=== PATIENT | female | born 2000 | race African-American/Black ===

== ENCOUNTER 2020-08-02 14:45 | Emergency (ER) | payer SELFPAY ==
[~2020-08-02] VITALS: Ht 165.1 cm; Wt 65.8 kg
[2020-08-02] MEDS ORDERED: OLANZAPINE 10 MG VIAL IM ONE ×2 (15:06→15:30)
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
--- NOTE | 2020-08-02 15:26 | NUR ---
covid swab done and taken it to the lab.
[2020-08-02] MEDS ORDERED: diphenhydrAMINE HCL 50 MG/ML VIAL IM ONE (16:00)
[2020-08-02] MEDS ORDERED: IV NS 0.9% 1,000 ML IV ONE ×3 (16:00→17:30)
[2020-08-02] MEDS ORDERED: LORAZEPAM INJ 2 MG/ML VIAL IM ONE (16:00)
[2020-08-02] MEDS ORDERED: diphenhydrAMINE HCL 50 MG/ML VIAL ONE (16:01)
[2020-08-02] MEDS ORDERED: LORAZEPAM INJ 2 MG/ML VIAL ONE (16:01)
[2020-08-02 16:06] LABS: BASOPHILS # (AUTO) 0.1 /CMM (0.0-0.2); BASOPHILS % (AUTO) 0.6 % (0.0-2.0); EOSINOPHILS % (AUTO) 0.4 % (0.0-6.0); HEMATOCRIT 40 % (33-45); HEMOGLOBIN 13.5 g/dL (11.5-14.8); LYMPHOCYTES # (AUTO) 1.6 /CMM (0.8-4.8); MEAN CORPUSCULAR HGB CONC 34 g/dl (31.0-36.0); MEAN CORPUSCULAR VOLUME 92 fL (82-100); MONOCYTES # (AUTO) 1.2 /CMM (0.1-1.30); MONOCYTES % (AUTO) 8.2 % (2.0-12.0); NEUTROPHILS # (AUTO) 11.8 /CMM (1.8-8.9); NEUTROPHILS % (AUTO) 79.8 % (43.0-81.0); PLATELET COUNT (AUTO) 258 /CMM (150-450); RED BLOOD CELL COUNT(AUTO) 4.41 MIL/uL (4.0-5.2); WHITE BLOOD COUNT (AUTO) 14.9 K/uL (4.3-11.0)
--- NOTE | 2020-08-02 16:07 | NUR ---
PT BECAME ANXIOUS, YELLING. MEDICATED PER ERMD ORDER, PT RUSTY WELL.
[2020-08-02 16:14] LABS: CALCIUM, SERUM 10.4 mg/dL (8.5-10.1); CARBON DIOXIDE 20 mmol/L (21-32); CHLORIDE 100 mmol/L (98-107); CREATININE 1.3 mg/dL (0.6-1.3); GLUCOSE 108 mg/dL (74-106); POTASSIUM 3.5 mmol/L (3.5-5.1); SODIUM SERUM 138 mmol/L (136-145); UREA NITROGEN, BLOOD 24 mg/dL (7-18)
--- NOTE | 2020-08-02 16:15 | NUR ---
LAB CALLED PT COVID RESULT NEGATIVE (-)
[2020-08-02 16:24] LABS: ALANINE AMINOTRANSFERASE 37 U/L (12-78); ALBUMIN 4.1 g/dL (3.4-5.0); ALCOHOL, BLOOD < 3 mg/dL (0-0); ALKALINE PHOSPHATASE 65 U/L (46-116); ASPARTATE AMINOTRANSFERASE 62 U/L (15-37); BILIRUBIN,DIRECT 0.4 mg/dL (0.0-0.2); BILIRUBIN,TOTAL 1.3 mg/dL (0.2-1.0); TOTAL PROTEIN, SERUM 8.1 g/dL (6.4-8.2)
[2020-08-02 16:32] LABS: ACETAMINOPHEN < 0 ug/ml (10-30)
--- NOTE | 2020-08-02 17:33 | NUR ---
urine collected and taken it to the lab
[2020-08-02 17:37] LABS: BILIRUBIN,URINE SMALL (NEGATIVE); COLOR,URINE DARK YELLOW (YELLOW); LEUKOCYTE ESTERASE ,URINE NEGATIVE (NEGATIVE); NITRITE, URINE POSITIVE (NEGATIVE); PROTEIN,URINE 100 mg/dl (NEGATIVE); UGLUCOSE NEGATIVE (NEGATIVE)
[2020-08-02 18:00] LABS: BACTERIA,URINE Many /HPF (None Seen); RBC,URINE 0-2 /HPF (0-2); SQUAMOUS EPITHELIAL CELL,UR Many /HPF (None Seen)
[2020-08-02] MEDS ORDERED: CEFTRIAXONE 1 G in IV D5W 50 ML IV ONE (18:00)
[2020-08-02] MEDS ORDERED: CEFTRIAXONE 1GM BAG (ER ONLY) 50 ML IV ONE (18:06)
[2020-08-02] MEDS ORDERED: HALOPERIDOL LACTATE INJ 5 MG/ML VIAL IM ONE (18:30)
[2020-08-02] MEDS ORDERED: HALOPERIDOL LACTATE INJ 5 MG/ML VIAL ONE (18:30)
--- NOTE | 2020-08-02 20:43 | NUR ---
RESTRAINTS TAKEN OFF PT. PT COOPERATIVE. VSS.
[2020-08-03 00:15] LABS: CALCIUM, SERUM 8.7 mg/dL (8.5-10.1); CREATININE 0.8 mg/dL (0.6-1.3); POTASSIUM 3.8 mmol/L (3.5-5.1)
--- NOTE | 2020-08-03 01:16 | NUR ---
PT RESTING COMFORTABLY. VSS.
--- NOTE | 2020-08-03 04:11 | NUR ---
PT AWAKE, VSS.
--- NOTE | 2020-08-03 06:05 | NUR ---
IV removed. Catheter intact and site benign. Pressure and 4x4 applied to site. No bleeding noted.
[2020-08-03] MEDS ORDERED: NITR100C6 PO (06:25)
--- NOTE | 2020-08-03 06:36 | NUR ---
Patient discharged to home in stable condition. Written and verbal after care instructions given. Patient verbalizes understanding of instruction and RX. Pt ambulated out of ED. VSS.
[2020-08-03 06:37] VITALS: BP 121/68
== END 2020-08-03 06:37 | disposition home or self-care (01) ==
LOC: ER 14:45
DX: F15.121 Other stimulant abuse with intoxication delirium (principal); E86.0 Dehydration; N30.00 Acute cystitis without hematuria; F19.10 Other psychoactive substance abuse, uncomplicated; F20.9 Schizophrenia, unspecified; R17 Unspecified jaundice; R00.0 Tachycardia, unspecified; R94.31 Abnormal electrocardiogram [ECG] [EKG]; E83.52 Hypercalcemia; Z20.822 Contact with and (suspected) exposure to COVID-19
CPT/HCPCS: 36415; 80048 ×2; 80076; 80299; 80307; 80320; 81001; 84702; 85025; 87077; 87086; 87186; 87426; 93005; 96361; 96365; 96372 ×2; 99285; C9803; J0696; J1200; J1630; J2060; J3490; J7030 ×2; G0480; J7060